=== PATIENT | female | born 1965 | race Caucasian/White ===

== ENCOUNTER → 2021-10-04 | Outpatient (CLI) | payer BC ==
[~2021-10-04] MED LIST: CELEXA40 MG PO; FIORICET 50-301 EACH PO; FLEXERIL 10 MG10 MG PO; HYDROCODON-ACE1 EAC6 PO; LYRICA200 MG PO; MILLIPRED5 MG PO; MULTI-VITAMIN1 EACH PO; TRAMADOL HCL50 MG PO; TYLENOL 500 MG500 MG PO; VITAMIN E100 UNIT PO; XARELTO10 MG PO
== END ==
LOC: MAMO 09-13 15:30
DX: Z12.31 Encounter for screening mammogram for malignant neoplasm of breast (principal); M54.50 Low back pain, unspecified; M47.816 Spondylosis without myelopathy or radiculopathy, lumbar region; M43.16 Spondylolisthesis, lumbar region
CPT/HCPCS: 72100; 77063; 77067